=== PATIENT | male | born 1935 | race Asian ===

== ENCOUNTER → 2017-03-12 | Outpatient (CLI) | payer OTHER ==
[~2017-03-12] MED LIST: ASPI-1061 PO; DUTA.5 PO; FERR-89 PO; HYDR20OI TP; METF500T4 PO; MVI PO; SIMV40TA5 PO; diovan PO
== END | disposition home or self-care (01) ==
LOC: RADPV 10:10
PROVIDERS: ATTEND Internal Medicine Cardiovascular Disease
DX: I35.8 Other nonrheumatic aortic valve disorders (principal)
CPT/HCPCS: 93306

== ENCOUNTER 2019-02-25 09:36 | Emergency (ER) | payer OTHER ==
[~2019-02-25] VITALS: Ht 162.6 cm; Wt 57.7 kg
[~2019-02-25 09:36] MED LIST changes: -ASPI-1061 PO; +ASPI81TA87 PO; +METF-960 PO; -METF500T4 PO
[2019-02-25 09:54] LABS: GLUCOSE,POINT OF CARE 137 MG/DL (70-110)
[2019-02-25] MEDS ORDERED: AMLO2.5T4 PO (09:59)
[2019-02-25 10:53] LABS: BASOPHILS % (AUTO) 0.5 % (0.0-2.0); EOSINOPHILS % (AUTO) 1.1 % (1.0-6.0); HEMATOCRIT 39.4 % (41-53); HEMOGLOBIN 12.8 g/dL (13.5-17.5); LYMPHOCYTES % (AUTO) 11.9 % (22.0-44.0); MEAN CORPUSCULAR HEMOGLOBIN 31.3 pg (26.0-34.0); MEAN CORPUSCULAR HGB CONC 32.5 G/dL (31.0-37.0); MEAN CORPUSCULAR VOLUME 96 fL (80-100); MONOCYTES # (AUTO) 0.7 K/uL (0.1-1.0); MONOCYTES % (AUTO) 8.9 % (2.0-9.0); NEUTROPHILS # (AUTO) 6.5 K/uL (1.8-7.7); NEUTROPHILS % (AUTO) 77.6 % (40.0-70.0); PLATELET COUNT (AUTO) 320 K/uL (150-450); RED BLOOD CELL COUNT(AUTO) 4.09 MIL/uL (4.50-5.90); RED CELL DISTRIBUTION WIDTH 14.4 % (11.5-14.5)
[2019-02-25 11:02] LABS: CALCIUM, TOTAL 9.8 mg/dL (8.8-10.5); CREATININE 1.85 mg/dL (0.60-1.30); POTASSIUM 3.7 mmol/L (3.5-5.1)
[2019-02-25 11:08] LABS: ALBUMIN 3.8 g/dL (3.4-5.0); BILIRUBIN,TOTAL 0.4 mg/dL (0.1-1.0); TOTAL PROTEIN, SERUM 8.1 g/dL (6.4-8.2)
[2019-02-25] MEDS ORDERED: PANTOPRAZOLE SODIUM 40 MG/VIAL IVP ONE (12:15)
[2019-02-25 14:21] VITALS: BP 167/96
== END 2019-02-25 14:30 | disposition short-term general hospital (02) ==
LOC: EMS 09:37
DX: K92.2 Gastrointestinal hemorrhage, unspecified (principal); I10 Essential (primary) hypertension; E78.00 Pure hypercholesterolemia, unspecified; K21.9 Gastro-esophageal reflux disease without esophagitis; I48.91 Unspecified atrial fibrillation; Z79.84 Long term (current) use of oral hypoglycemic drugs
CPT/HCPCS: 36415; 71045; 80053; 82962; 83690; 85025; 85610; 85730; 86850; 86900; 86901; 93005; 96374; 99285; C9113

== ENCOUNTER 2024-01-02 11:59 | Emergency (ER) | payer OTHER ==
[~2024-01-02] VITALS: Ht 157.5 cm; Wt 65.9 kg
[~2024-01-02 11:59] MED LIST changes: +AMLO2.5T96 PO; -DUTA.5 PO; +DUTA0.5C38 PO; -FERR-89 PO; -HYDR20OI TP; +METF-1211 PO; -METF-960 PO; +SIMV-46 PO; -SIMV40TA5 PO; -diovan PO
[2024-01-02 12:28] VITALS: TEMP 99.2
[2024-01-02] MEDS: PROPARACAINE HCL 0.5% 15 ML OPHTHALMIC SOLUTION OD ONE (13:16)
[2024-01-02] MEDS: FLUORESCEIN SODIUM 1 MG STRIP OD ONE (13:17)
[2024-01-02 14:15] VITALS: BP 125/81; PULSE 81; RESP 16
[2024-01-02] MEDS ORDERED: VALA100026 PO (14:15)
[2024-01-02] MEDS: ValACYclovir HCL 500 MG TABLET PO ONE (14:17)
== END 2024-01-02 14:25 | disposition home or self-care (01) ==
LOC: EMS 12:59
DX: B02.9 Zoster without complications (principal); E78.00 Pure hypercholesterolemia, unspecified; I10 Essential (primary) hypertension
CPT/HCPCS: 99283